=== PATIENT | female | born 1960 | race African-American/Black ===

== ENCOUNTER 2019-11-15 13:06 | Emergency (ER) | payer MEDICAID ==
[~2019-11-15] VITALS: Ht 162.6 cm; Wt 101.2 kg
[~2019-11-15 13:06] MED LIST: ALBUTEROL SULF8.5 GM INH; AZITHROMYCIN250 MG ORAL; IBUPROFEN600 MG ORAL; KEFLEX500 MG ORAL; NKM; PREDNISONE20 MG ORAL; PROMETHAZINE-C118 M1 ORAL
--- NOTE | 2019-11-15 13:14 | NUR ---
ED Nurse Note: pt ambulated to ed c/o high bp 156/82. pt denies blurry vision. pt reports headaches starting at 1000 today. pt does not take any blood pressure medication.
[2019-11-15 13:16] VITALS: BP 156/82
--- NOTE | 2019-11-15 13:39 | NUR ---
ED Nurse Note: urine and blood specimen sent to lab
[2019-11-15 13:53] LABS: APPEARANCE,URINE CLEAR; BASOPHILS % (AUTO) 1.8 % (0.0-2.0); BILIRUBIN, URINE NEGATIVE (NEGATIVE); COLOR,URINE PALE YELLOW; EOSINOPHILS % (AUTO) 2.7 % (0.0-3.0); GLUCOSE, URINE (UA) NEGATIVE (NEGATIVE); HEMATOCRIT 41.3 % (37.0-47.0); HEMOGLOBIN 14.2 G/DL (12.0-16.0); KETONES,URINE NEGATIVE (NEGATIVE); LEUKOCYTE ESTERASE ,URINE NEGATIVE (NEGATIVE); LYMPHOCYTES % (AUTO) 38.1 % (20.0-45.0); MEAN CORPUSCULAR VOLUME 90 FL (80-99); MONOCYTES % (AUTO) 8.5 % (1.0-10.0); NEUTROPHILS % (AUTO) 48.9 % (45.0-75.0); NITRITE,URINE NEGATIVE (NEGATIVE); PH,URINE 5 (4.5-8.0); PLATELET COUNT 248 K/UL (150-450); PROTEIN,URINE 2+ (NEGATIVE); RED BLOOD COUNT 4.61 M/UL (4.20-5.40); RED CELL DISTRIBUTION WIDTH 11.8 % (11.6-14.8); UROBILINOGEN,URINE NORMAL MG/DL (0.0-1.0); WHITE BLOOD COUNT 6.3 K/UL (4.8-10.8)
[2019-11-15 14:10] LABS: ANION GAP 8 mmol/L (5-15); BLOOD UREA NITROGEN 9 mg/dL (7-18); CALCIUM 9.3 MG/DL (8.5-10.1); CARBON DIOXIDE 27 MMOL/L (21-32); CHLORIDE 109 MMOL/L (98-107); CREATININE 0.9 MG/DL (0.55-1.30); POTASSIUM 3.8 MMOL/L (3.5-5.1); SODIUM 144 MMOL/L (136-145)
[2019-11-15 14:21] LABS: ALANINE AMINOTRANSFERASE 23 U/L (12-78); ALBUMIN 3.1 G/DL (3.4-5.0); ALBUMIN/GLOBULIN RATIO 0.7 (1.0-2.7); ALKALINE PHOSPHATASE 101 U/L (46-116); ASPARTATE AMINO TRANSFERASE 17 U/L (15-37); BILIRUBIN,TOTAL 0.3 MG/DL (0.2-1.0)
--- NOTE | 2019-11-15 14:35 | Emergency Room Report ---
History of Present Illness General Chief Complaint: General Complaint Source: Patient Present Illness HPI 59-year-old female with history of pedal edema who occasionally takes furosemide in the summertime only here complaining of 2 days of elevated blood pressure. Reports that she was at her substance abuse technician office yesterday and due to her elevated blood pressure the substance abuse technician refused to see her. Patient also has elevated blood pressure today. Denies headache and dizziness, chest pain, shortness of breath, palpitation, abdominal pain nausea vomiting. Denies unilateral or generalized weakness. Reports that she smokes 1 pack a day. Stopped smoking about few days ago. However today have 1 cigarette. Denies all other drug use and alcohol intake. Denies recent travel. Denies calf tenderness and bilateral leg swelling. Also complains of feet swelling on and off which resolved with elevation. Reports that she has been eating a lot of salty food lately.. Has an upcoming appointment with primary care on 21 November. Is sitting comfortably with stable vital signs and reports that in the past 2 weeks she has been taking naproxen on daily basis for the back pain. Allergies: Coded Allergies: PENICILLINS (Verified Allergy, Unknown, vomiting, 11/15/19) Patient History Past Medical History: see triage record Past Surgical History: none Pertinent Family History: none Social History: Reports: smoking Now: No Immunizations: UTD Reviewed Nursing Documentation: PMH: Agreed; PSxH: Agreed Nursing Documentation-PMH Past Medical History: No Stated History Hx Asthma: Yes Review of Systems All Other Systems: negative except mentioned in HPI Physical Exam Vital Signs Date Time Temp Pulse Resp B/P (MAP) Pulse Ox O2 Delivery O2 Flow Rate FiO2 11/15/19 13:08 98.1 60 18 156/82 (106) 96 Room Air Sp02 EP Interpretation: reviewed, abnormal - BP 156/82 General Appearance: no apparent distress, alert, GCS 15, non-toxic Head: normocephalic, atraumatic Eyes: bilateral eye normal inspection, bilateral eye PERRL ENT: hearing grossly normal, normal pharynx, no angioedema, normal voice Neck: full range of motion, no carotid bruits, supple/symm/no masses Respiratory: chest non-tender, lungs clear, normal breath sounds, no rhonchi, no respiratory distress, no retraction, no wheezing, speaking full sentences Cardiovascular #1: regular rate, rhythm, no edema, no murmur, normal capillary refill, bradycardia Gastrointestinal: normal bowel sounds, non tender, soft, non-distended, no guarding, no rebound Rectal: deferred Genitourinary: normal inspection, no CVA tenderness Musculoskeletal: back normal, normal range of motion, no calf tenderness, gait/ station normal, Leonardo's Sign negative, non-tender Neurologic: alert, motor strength/tone normal, oriented x3, sensory intact, responsive, speech normal Psychiatric: judgement/insight normal, memory normal, mood/affect normal, no suicidal/homicidal ideation Skin: no rash, normal color Lymphatic: no adenopathy Medical Decision Making PA Attestation All my diagnosis and treatment plans were reviewed ad discussed with my supervising physician Dr. Hayden Diagnostic Impression: Primary Impression: HTN (hypertension) ER Course 59-year-old female with history of pedal edema who occasionally takes furosemide in the summertime only here complaining of 2 days of elevated blood pressure. Reports that she was at her substance abuse technician office yesterday and due to her elevated blood pressure the substance abuse technician refused to see her. Patient also has elevated blood pressure today. Denies headache and dizziness, chest pain, shortness of breath, palpitation, abdominal pain nausea vomiting. Denies unilateral or generalized weakness. Reports that she smokes 1 pack a day. Stopped smoking about few days ago. However today have 1 cigarette. Denies all other drug use and alcohol intake. Denies recent travel. Denies calf tenderness and bilateral leg swelling. Also complains of feet swelling on and off which resolved with elevation. Reports that she has been eating a lot of salty food lately.. Has an upcoming appointment with primary care on 21 November. Is sitting comfortably with stable vital signs and reports that in the past 2 weeks she has been taking naproxen on daily basis for the back pain. Ddx considered but are not limited to: MT, Angina, hypertensive emergency versus urgency versus hypertension Vital signs: are WNL, pt. is afebrile H&PE are most consistent with hypertension acute ORDERS: EKG, Chest XR, CBC, CMP, troponin, BMP, UA, hydrochlorothiazide ED INTERVENTIONS: None required at this time. DISCHARGE: At this time pt. is stable for d/c to home. Will provide printed patient care instructions, and any necessary prescriptions. Care plan and follow up instructions have been discussed with the patient prior to discharge. Patient to follow-up with primary care provider, take medication as directed, if worsening symptoms return to the emergency room also referral to health data administrator may be needed. Avoid smoking, avoid taking naproxen EKG Diagnostic Results Rate: bradycardiac Rhythm: other - duglas ST Segments: no acute changes Other Impression No acute ST changes Chest X-Ray Diagnostic Results Chest X-Ray Diagnostic Results : Chest X-Ray Ordered: Yes # of Views/Limited/Complete: 1 View Indication: Other - Evaded blood pressure EP Interpretation: Yes PA Xray: Interpretation reviewed, by supervising MD, and agrees with findings. Interpretation: no consolidation, no effusion, no pneumothorax, no acute cardiopulmonary disease Impression: No acute disease Electronically Signed by: Olimpia Palacio PA-C Last Vital Signs Date Time Temp Pulse Resp B/P (MAP) Pulse Ox O2 Delivery O2 Flow Rate FiO2 11/15/19 13:16 60 18 Room Air 11/15/19 13:16 98.1 156/82 96 Disposition: HOME, SELF-CARE Condition: Stable Referrals: NON PHYSICIAN (PCP) Patient Instructions: Hypertension, [id number] Additional Instructions: Take medication as directed, avoid smoking, avoid taking naproxen as it will elevate your blood pressure. Follow-up with your primary care provider around 11 for further work-up and assessment of hypertension. Olimpia Roper Nov 15, 2019 14:35
[2019-11-15] MEDS ORDERED: HYDROCHLOROTH12.5 MG ORAL (14:37)
--- NOTE | 2019-11-15 14:39 | Diagnostic Imaging Report ---
Indication: Dyspnea Comparison: None A single view chest radiograph was obtained. Findings: Cardiomediastinal appearance is within normal limits for age. The lungs are clear. Pulmonary vascularity is appropriate. The diaphragmatic contour is smooth and costophrenic angles are sharp. No pleural effusions are identified. The bones are unremarkable. Impression: No acute findings
[2019-11-15 14:40] VITALS: BP 158/87
--- NOTE | 2019-11-15 14:40 | NUR ---
ER DISCHARGE NOTE: Patient is cleared to be discharged per ERMD, pt is aox4, on room air, with stable vital signs. pt was given dc and prescription instructions, pt was able to verbalize understanding, pt id band and iv site removed without complications. pt is able to ambulate with steady gait. pt took all belongings.
== END 2019-11-15 14:40 | disposition home or self-care (01) ==
LOC: EMR 13:35
DX: I10 Essential (primary) hypertension (principal); J45.909 Unspecified asthma, uncomplicated; Z88.0 Allergy status to penicillin
CPT/HCPCS: 36415; 71045; 80053; 81003; 83880; 84484; 85025; 93005; Z7502; 99283